=== PATIENT | female | born 1965 | race Hispanic/Latino ===

== ENCOUNTER 2018-03-07 13:26 | Outpatient (CLI) | payer OTHER | END 2018-03-07 13:27 | disposition home or self-care (01) | LOC: BICMAMMO 13:26 | PROVIDERS: ATTEND Internal Medicine | DX: Z12.31 Encounter for screening mammogram for malignant neoplasm of breast (principal); R06.00 Dyspnea, unspecified | CPT/HCPCS: 71046; 77063; 77067 ==

== ENCOUNTER 2018-06-11 16:00 | Outpatient (CLI) | payer OTHER | END 2018-06-11 16:01 | disposition home or self-care (01) | LOC: SLEEPLAB 16:00 | PROVIDERS: ATTEND Internal Medicine Critical Care Medicine | DX: G47.33 Obstructive sleep apnea (adult) (pediatric) (principal); F41.9 Anxiety disorder, unspecified; G47.00 Insomnia, unspecified; F32.9 Major depressive disorder, single episode, unspecified; I10 Essential (primary) hypertension; R53.83 Other fatigue | CPT/HCPCS: 95806 ==

== ENCOUNTER 2019-01-25 07:45 | Outpatient (CLI) | payer OTHER ==
--- NOTE | 2019-01-25 09:32 | RAD ---
CERVICAL SPINE 3 VIEWS: Date: 01/25/19 Lateral view obtained in neutral, flexion, and extension positions. INDICATION: Neck pain. FINDINGS: Cervical vertebra maintain normal height. There is a slight anterolisthesis at C5-6. Minimal anterior spurring is seen within the cervical vertebra. Alignment is otherwise preserved. The anterolisthesis at C5-6 reduces with extension. IMPRESSION: Very mild degenerative change. Mild anterolisthesis at C5-6 which appears to reduce with extension. POS: [facility]
--- NOTE | 2019-01-25 09:57 | MRI ---
MRI LUMBAR SPINE: Multiplanar, multisequential imaging of the lumbar spine obtained. INDICATION: Low back pain. Neck pain. Numbness to both legs. Comparison is made to MRI of lumbar spine dated 08/05/2016. FINDINGS: The lumbar vertebrae maintain normal height and alignment. Disk spaces are preserved. Vertebral bod y signal is normal. At L1-2, no significant disk abnormality. There is mild facet arthrosis. No central canal or forami nal stenosis. At L2-3, there is an annular fissure with a diffuse disk bulge which is more prominent than on the pr ior study. This flattens the anterior thecal sac. There is mild posterior facet hypertrophy. Howev er, no significant central canal or foraminal stenosis. At L3-4, no significant disk abnormality. Mild facet arthrosis and hypertrophy. No significant cent ral canal or foraminal stenosis. At L4-5, minimal disk bulge. Mild facet arthrosis and hypertrophy. No significant central canal or foraminal stenosis. At L5-S1, mild disk bulge abutting the anterior thecal sac. Similar appearance to the prior exam. M ild facet hypertrophy and arthrosis. No significant central canal or foraminal stenosis. IMPRESSION: 1. Annular fissure with broad-based bulge at L2-3 is more prominent today than on the prior study. This flattens the thecal sac; however, no significant central canal or foraminal stenosis seen. 2. Facet arthrosis and hypertrophy at the other levels with mild disk bulge at L5-S1 which is unchan ged in appearance from the prior exam. Minimal disk bulge at L4-5 is stable. POS: [facility]
--- NOTE | 2019-01-25 10:12 | MRI ---
Exam: MRI cervical spine without contrast HISTORY: Neck pain. COMPARISON: None FINDINGS: Straightening of normal cervical lordosis. Slight reversal of lordosis at C5-C6. Appropriate T1 dileep ow signal intensity of the cervical vertebra. No fracture. No significant STIR hyperintensity to suggest vertebral body edema or ligamentous injury Visualized brain parenchyma, cervical medullary junction, cervical cord and the upper thoracic cord a re normal size and signal intensity Incidental partially empty sella is noted C2-C3: No significant central canal stenosis or neural foraminal narrowing C3-C4: No significant central canal stenosis or neural foraminal narrowing C4-C5: No significant central canal stenosis or neural foraminal narrowing C5-C6: No significant central canal stenosis or neural foraminal narrowing C6-C7: Central, right paracentral disc osteophyte complex. No significant central canal stenosis. The re is mild flattening of the right aspect of the thecal sac. Neural foramina are patent bilaterally. C7-T1: No significant central canal stenosis or neural foraminal narrowing IMPRESSION: Degenerative changes at C6-C7 without significant central canal stenosis.
== END 2019-01-25 07:46 | disposition home or self-care (01) ==
LOC: SCSMRI 07:45
PROVIDERS: ATTEND Neurological Surgery
DX: M54.2 Cervicalgia (principal); M54.5 Low back pain; M47.812 Spondylosis without myelopathy or radiculopathy, cervical region; M43.12 Spondylolisthesis, cervical region; M48.02 Spinal stenosis, cervical region; M51.26 Other intervertebral disc displacement, lumbar region; M51.27 Other intervertebral disc displacement, lumbosacral region; M47.816 Spondylosis without myelopathy or radiculopathy, lumbar region; Q05.7 Lumbar spina bifida without hydrocephalus
CPT/HCPCS: 72040; 72141; 72148